=== PATIENT | male | born 1950 | race Caucasian/White ===

== ENCOUNTER → 2024-10-26 07:22 | Outpatient (REF) | payer MEDICARE, OTHER, SELFPAY | LOC: HWRAD 07:22 | PROVIDERS: ATTENDING PHYSICIAN Family Medicine | DX: M54.16 Radiculopathy, lumbar region (principal) | CPT/HCPCS: 72120; 73502 ==

== ENCOUNTER 2025-01-06 16:21 | Emergency (ER) | payer MEDICARE, OTHER, SELFPAY ==
[2025-01-06 16:22] VITALS: BP 151/90
[2025-01-06 17:54] VITALS: BMI 35.1
--- NOTE | 2025-01-06 18:03 | ED.GENMED ---
History of Present Illness
General
Chief Complaint: DVT/Possible Blood Clot
Time Seen by Provider: 01/06/25 17:11
History of Present Illness
History of Present Illness:
74-year-old male presents to the emergency department for evaluation of left lower extremity swelling that began yesterday but worsened overnight, did improve while waiting in the ED. He has a history of DVT in his leg and thus was sent by his
primary care physician for further evaluation. Denies any pain. No fevers or chills. No chest pain or dyspnea
Review of Systems
Review of Systems
Allergies reviewed?: Yes
All Other Systems: ROS reviewed and negative except as documented in HPI and ROS
Phy Exam
Physical Exam
Physical Exam:
GEN: Well appearing, NAD, WDWN
HEENT: Oral mucosa moist, no scleral icterus
Cardiac: Regular rate
Lung: No respiratory distress, no tachypnea
MSK: No gross deformity or injuries. Mild swelling of the left calf, calf is soft and compressible throughout, no pain with passive stretch
Skin: Good color, no pallor or jaundice, no rashes
Neuro: AO x3, moves all extremities freely
Psych: Calm, cooperative
Course
Orders/Labs/Results
Orders:
Orders
01/06/25 16:23
Legs, left US [US Periph Venous LOWER Ext LT] Urgent
Comment:
Reason For Exam: pain swelling
Vital Signs
Initial and Last Documented VS:
Initial Vital Signs
Temp Pulse Resp BP Pulse Ox
98 F 69 20 151/90 97
01/06/25 16:22 01/06/25 16:22 01/06/25 16:22 01/06/25 16:22 01/06/25 16:22
Last Documented Vital Signs
Temp Pulse Resp BP Pulse Ox
98 F 69 20 151/90 97
01/06/25 16:22 01/06/25 16:22 01/06/25 16:22 01/06/25 16:22 01/06/25 18:05
MDM/Problems Addressed
MDM/Problems Addressed:
DVT study negative, likely benign edema
*Pulse Oximetry
SaO2: 97
Oxygen Mode of Delivery: Room air
Patient hypoxic: no
*Critical Care Note
Total Time (30-74mins, 75-104mins- exclusive of procedures): Not Applicable
ED Attending Note
-
Portions of this chart may have been created with voice recognition software.� Occasional wrong word or��sound alike� substitutions may have occurred due to the inherent limitations of voice recognition software.
Discharge Plan
Departure
Patient Disposition: Home (Routine Discharge)
Date of Disposition: 01/06/25
Time of Disposition: 18:41
Patient with high blood pressure during this ER visit?: No
Discharge Problem:
Left leg swelling
Instructions: Swelling
Prescriptions:
No Action
atorvastatin 20 mg tablet
20 mg PO DAILY@1400
tamsulosin 0.4 mg capsule
0.4 mg PO QPM
metformin 1,000 mg tablet
1,000 mg PO BID@0800,1700
glimepiride 4 mg tablet
4 mg PO DAILY
telmisartan 80 mg tablet
80 mg PO DAILY@1400
montelukast 10 mg tablet
10 mg PO QPM
fenofibrate nanocrystallized 145 mg tablet
145 mg PO DAILY
Januvia 100 mg tablet
100 mg PO QPM
cetirizine [Zyrtec] 10 mg Tablet
10 mg PO QID
ibuprofen 400 mg Tablet
400 mg PO Q8HPRN PRN (Reason: mild pain)
cholecalciferol (vitamin D3) [Vitamin D3] 25 mcg (1,000 unit) Tablet
25 mcg PO DAILY
Visbiome 112.5 billion cell Capsule
1 cap PO DAILY
Heal And Soothe
1 tab PO TID
Eliquis DVT-PE Treat 30D Start 5 mg (74 tabs) tablets,dose pack
See Rx Instructions .ROUTE .COMPLEX Qty: 74 0RF
Rx Instructions:
orally per package directions
Referrals:
Elder Rodriguez, DO [Family Provider, Family Practice]
Interventions
Interventions:
*Risk Screen - Suicide Last Done: 01/06/25 16:22
*General Assessment Last Done: 01/06/25 16:22
*Neglect/Abuse Screening Last Done: 01/06/25 16:22
*ED- Fall Risk Assessment Last Done: 01/06/25 17:54
*ED COVID-19 Vaccine History Last Done: 01/06/25 17:54
*Nursing Disposition Last Done: 01/06/25 18:45
ED- Cardiac Assessment Last Done: 01/06/25 17:54
ED- Pulmonary Assessment Last Done: 01/06/25 17:54
ED-Peripheral Vascular Assessment Last Done: 01/06/25 17:54
ED-Skin Assessment Last Done: 01/06/25 17:54
Discharge Date and Time
Discharge Date/Time: 01/06/25 18:46
Print Language: ARMENIAN
== END 2025-01-06 18:46 | disposition home or self-care (01) ==
LOC: EMR 16:21
PROVIDERS: EMERGENCY PHYSICIAN Emergency Medicine; FAMILY PHYSICIAN Family Medicine
DX: R22.42 Localized swelling, mass and lump, left lower limb (principal); M79.662 Pain in left lower leg; Z86.718 Personal history of other venous thrombosis and embolism
CPT/HCPCS: 99284; 93971